=== PATIENT | female | born 1960 | race Caucasian/White ===

== ENCOUNTER 2023-03-04 10:28 | Outpatient (OUT) | payer OTHER, SELFPAY ==
--- NOTE | 2023-03-04 10:36 | XR_ITS ---
The [address] [address] Patient Name: TERESITA KIM MRN: [id number] date: 1960 Sex: F Assigned Patient Location: [facility] Current Patient Location: [facility] Accession/Order Number: [id number] Exam Date: 03/04/2023 10:38 Report Date: 03/04/2023 11:46 At the request of: PROSPER HUTCHINSON Procedure: XR shoulder RT min 2V PROCEDURE: XR shoulder RT min 2V HISTORY: Right shoulder injury S49.91XA COMPARISON: None. FINDINGS: BONES:Mild narrowing of the coracoid clavicular joint. Subtle cortical irregularity involving the anterior right third and fourth ribs. SOFT TISSUES:No visible soft tissue swelling. EFFUSION:None visible. OTHER: Negative. IMPRESSION: 1. Mild degenerative change of the acromioclavicular joint. No acute bone abnormality of the shoulder. 2. Nondisplaced fractures involving the anterior right third and fourth ribs versus sequela of remote injuries. Correlate for tenderness in this area. Electronically authenticated by: LEONELA HENRIQUEZ Date: 03/04/2023 11:46
== END 2023-03-04 10:29 ==
LOC: RAD 10:31
PROVIDERS: PCP Family Medicine; Visit Provider Family Medicine
DX: S49.91XA Unspecified injury of right shoulder and upper arm, initial encounter (principal)
CPT/HCPCS: 73030